=== PATIENT | female | born 1985 | race Caucasian/White ===

== ENCOUNTER → 2016-11-22 | Outpatient (CLI) | payer OTHER ==
[2016-11-23 15:36] LABS: HEP B CORE IGM ANTIBODY Negative (Negative); HEPATITIS B SURFACE AG Negative (Negative)
[2016-11-24 07:17] LABS: HEPATITIS C ANTIBODY SCREEN Negative (Negative)
== END ==
LOC: LAB 10:00
PROVIDERS: ATTEND Neuromusculoskeletal Medicine & OMM
DX: R17 Unspecified jaundice (principal)
CPT/HCPCS: 36415; 86705; 86709; 86803; 87340

== ENCOUNTER → 2017-02-07 | Outpatient (CLI) | payer OTHER ==
[2017-02-07 08:36] LABS: BASOPHILS # (AUTO) 0.03 10*3/UL; BASOPHILS % (AUTO) 0.5 % (0-1); EOSINOPHILS # (AUTO) 0.26 10*3/UL; HEMATOCRIT 41.9 % (37.0-47.0); HEMOGLOBIN 14.3 g/dL (12.0-16.0); LYMPHOCYTES # (AUTO) 1.84 10*3/uL; MEAN CORPUSCULAR HEMOGLOBIN 29.1 PG (27-31); MEAN CORPUSCULAR HGB CONC 34.1 g/dL (33-37); MEAN CORPUSCULAR VOLUME 85.2 FL (81-99); MEAN PLATELET VOLUME 9.7 FL (7.4-12.2); MONOCYTES # (AUTO) 0.45 10*3/UL (0.3-0.8); MONOCYTES % (AUTO) 6.9 % (5-15); NEUTROPHILS # (AUTO) 3.96 10*3/UL; NEUTROPHILS % (AUTO) 60.3 % (50-80); RED BLOOD COUNT 4.92 10^6/uL (4.20-5.40)
[2017-02-07 08:43] LABS: PLATELET MORPHOLOGY COMMENT NORMAL MORPHOLOGY (NORM); RBC MORPHOLOGY COMMENT NORMAL MORPHOLOGY (NORM); WBC MORPHOLOGY COMMENT NORMAL MORPHOLOGY (NORM)
[2017-02-09 08:45] LABS: THYROID PEROXIDASE AB 89.1 IU/mL (<9.0)
[2017-02-10 20:46] LABS: C PNEUMONIAE IGG <1:64 titer (<1:64); C PNEUMONIAE IGM <1:10 titer (<1:10); C PSITTACI IGG <1:64 titer (<1:64)
[2017-02-11 07:56] LABS: C PSITTACI IGM <1:10 titer (<1:10)
[2017-02-11 11:38] LABS: T3 REVERSE 12 ng/dL (10-24)
== END ==
LOC: LAB 08:01
PROVIDERS: ATTEND Physician Assistant
DX: E03.9 Hypothyroidism, unspecified (principal); R53.83 Other fatigue; R10.2 Pelvic and perineal pain; R60.0 Localized edema; R45.4 Irritability and anger; M25.542 Pain in joints of left hand; M25.541 Pain in joints of right hand
CPT/HCPCS: 36415; 84443; 84480; 84481; 84482; 85025; 86376; 86631; 86632; 86664; 86665; 86694; 86695; 86696; 86738